=== PATIENT | female | born 1985 ===

== ENCOUNTER 2021-05-08 09:39 | Outpatient (CLI) | payer OTHER | END 2021-05-08 11:49 | disposition home or self-care (01) | LOC: PRENATAL 09:39 | PROVIDERS: ATTEND Obstetrics & Gynecology Maternal & Fetal Medicine | DX: O35.0XX1 Maternal care for (suspected) central nervous system malformation in fetus, fetus 1 (principal); O35.3XX1 Maternal care for (suspected) damage to fetus from viral disease in mother, fetus 1; O98.512 Other viral diseases complicating pregnancy, second trimester; O09.512 Supervision of elderly primigravida, second trimester; Z36.89 Encounter for other specified antenatal screening; Z3A.26 26 weeks gestation of pregnancy ==

== ENCOUNTER 2021-06-22 10:03 | Outpatient (CLI) | payer OTHER | END 2021-06-22 11:12 | disposition home or self-care (01) | LOC: PRENATAL 10:03 | PROVIDERS: ATTEND Obstetrics & Gynecology Maternal & Fetal Medicine | DX: O26.843 Uterine size-date discrepancy, third trimester (principal); O09.523 Supervision of elderly multigravida, third trimester; O35.0XX1 Maternal care for (suspected) central nervous system malformation in fetus, fetus 1; Z36.89 Encounter for other specified antenatal screening; Z3A.33 33 weeks gestation of pregnancy ==

== ENCOUNTER 2021-07-27 11:51 | Inpatient (IN) | payer OTHER ==
[~2021-07-27] VITALS: Ht 157.5 cm; Wt 78.0 kg
[2021-07-27] MEDS ORDERED: PRENATABS FA T1 EACH PO (12:42)
[2021-07-27] MEDS ORDERED: ASA-BUTALB-CAF1 EACH PO (12:42)
== END 2021-07-29 12:44 | disposition home or self-care (01) | DRG 807 ==
LOC: LDR 11:51 → OB/GYN 11:51
PROVIDERS: ADMIT Student in an Organized Health Care Education/Training Program; ATTEND Student in an Organized Health Care Education/Training Program
PROC: 10E0XZZ Delivery of Products of Conception, External Approach (ICD-10-PCS; principal; 2021-07-27)
PROC: 0UQMXZZ Repair Vulva, External Approach (ICD-10-PCS; 2021-07-27)
PROC: 4A1HXFZ Monitoring of Products of Conception, Cardiac Rhythm, External Approach (ICD-10-PCS; 2021-07-27)
DX: O71.82 Other specified trauma to perineum and vulva (principal); Z37.0 Single live birth; Z3A.38 38 weeks gestation of pregnancy